=== PATIENT | female | born 1955 ===

== ENCOUNTER 2018-02-04 13:46 | Emergency (ER) | payer MEDICARE, BC ==
[~2018-02-04] VITALS: Ht 160 cm; Wt 65.8 kg
[2018-02-04] MEDS ORDERED: METF500T6 PO (14:03)
[2018-02-04] MEDS ORDERED: LISI10TA5 PO (14:03)
[2018-02-04] MEDS ORDERED: LEVOTHYROXINE (14:03)
[2018-02-04] MEDS ORDERED: LYRICA (14:03)
[2018-02-04] MEDS ORDERED: CLON0.2T PO (14:03)
--- NOTE | 2018-02-04 14:40 | NUR ---
Dr. Taylor stated pt expressed she has also having chest pain and will be admitted to tele.
--- NOTE | 2018-02-04 14:44 | NUR ---
SALINE LOCK PLACED/LABS DRAWN-SENT, PT TO CT SCAN.
[2018-02-04 14:55] LABS: BASOPHILS % (AUTO) 0.6 % (0.0-2.0); EOSINOPHILS # (AUTO) 0.1 K/uL (0.0-0.7); EOSINOPHILS % (AUTO) 0.9 % (0.0-7.0); HEMATOCRIT 39.7 % (31.2-41.9); HEMOGLOBIN 13.3 g/dL (10.9-14.3); LYMPHOCYTES % (AUTO) 26.2 % (20.5-51.5); MEAN CORPUSCULAR HEMOGLOBIN 29.3 uug (24.7-32.8); MEAN CORPUSCULAR HGB CONC 34 g/dL (32.3-35.6); MEAN CORPUSCULAR VOLUME 87.2 fL (75.5-95.3); MONOCYTES # (AUTO) 0.6 K/uL (2.0-10.0); MONOCYTES % (AUTO) 8.2 % (0.0-11.0); NEUTROPHILS # (AUTO) 4.9 K/uL (1.8-8.9); NEUTROPHILS % (AUTO) 64.1 % (38.5-71.5); PLATELET COUNT (AUTO) 244 K/uL (179-408); RED BLOOD CELL COUNT(AUTO) 4.55 MIL/uL (3.63-4.92); WHITE BLOOD COUNT (AUTO) 7.6 K/uL (3.8-11.8)
[2018-02-04 14:56] LABS: CREATININE 0.8 mg/dL (0.6-1.3); POTASSIUM 3.8 mmol/L (3.5-5.1)
[2018-02-04 15:08] LABS: BILIRUBIN,DIRECT 0.1 mg/dL (0.0-0.2); BILIRUBIN,TOTAL 0.3 mg/dL (0.2-1.0); TOTAL PROTEIN, SERUM 7.9 g/dL (6.4-8.2)
[2018-02-04] MEDS ORDERED: ASPIRIN 325 MG TABLET PO ONE (15:30)
[2018-02-04] MEDS ORDERED: ASPIRIN 325 MG TABLET ONE (15:45)
--- NOTE | 2018-02-04 16:06 | NUR ---
PT DECIDED TO NOT BE ADMITTED, PT SIGNED OUT AMA, COPY OF TESTS/EKG GIVEN. PT HAS IV D/C'D INTACT. PT GOT DRESSED AND AMBULATED W/O DIFF/TOOK ALL BELONGINGS.
[2018-02-04 16:13] VITALS: BP 118/95
[2018-02-04] MEDS ORDERED: NITROGLYCERIN 0.4 MG/TAB BOTTLE SL ONE (18:00)
[2018-02-04] MEDS ORDERED: MAGNESIUM HYDROXIDE 30 ML LIQUID UDC PO PRN (18:00)
[2018-02-04] MEDS ORDERED: HYDROCODONE/APAP 5-325MG TABLET PO PRN (18:00)
[2018-02-04] MEDS ORDERED: ACETAMINOPHEN 325 MG TABLET PO PRN (18:00)
[2018-02-04] MEDS ORDERED: ONDANSETRON 4 MG/2 ML VIAL IV PRN (18:00)
[2018-02-04] MEDS ORDERED: DOCUSATE SODIUM 250 MG CAPSULE PO SCH (21:00)
[2018-02-05] MEDS ORDERED: PANTOPRAZOLE SODIUM 40 MG TABLET.DR PO SCH (07:00)
[2018-02-05] MEDS ORDERED: ASPIRIN EC 81 MG TABLET.DR PO SCH (09:00)
[2018-02-05] MEDS ORDERED: LISINOPRIL 10 MG TABLET PO SCH (09:00)
[2018-02-05] MEDS ORDERED: METFORMIN HCL 500 MG TABLET PO SCH (09:00)
== END 2018-02-04 16:13 | disposition left against medical advice (07) ==
LOC: ER 13:47
DX: R07.89 Other chest pain (principal); I10 Essential (primary) hypertension; K21.9 Gastro-esophageal reflux disease without esophagitis; E11.9 Type 2 diabetes mellitus without complications; E03.9 Hypothyroidism, unspecified; Z79.84 Long term (current) use of oral hypoglycemic drugs; Z79.899 Other long term (current) drug therapy
CPT/HCPCS: 36415; 70030-TC; 70450; 71045; 85025; 85730; 93005; A4663